=== PATIENT | female | born 1955 | race Caucasian/White ===

== ENCOUNTER 2022-09-28 14:05 | Outpatient (RCR) | payer OTHER, SELFPAY ==
[2022-07-22 12:17] LABS: D Dimer Quantitative* < 0.27 ug/ml (0.00-0.50)
[2022-07-24 05:09] LABS: Cardiolipin Antibody IgA < 10 APL (<=11); Cardiolipin Antibody IgG < 10 GPL (<=14); Cardiolipin Antibody IgM < 10 MPL (<=12)
[2022-07-26 16:55] LABS: FACV Specimen Whole Blood; Factor V Leiden (F5) Mutation Negative
[2022-07-27 17:58] LABS: Antithrombin, Enzymatic 118 % (76-128)
[2022-07-27 23:54] LABS: Protein C Functional 180 % (83-168); Protein S Functional 147 % (57-131)
[2022-08-01 22:52] LABS: BILL_DRV Billed; BILL_DRVC Billed; BILL_HEXPR Billed; Hexagonal Phospholipid Reflex Negative (Negative); Prothrombin Time 17.4 sec (12.0-15.5); dRVVT 1:1 Mix 47 sec (33-44); dRVVT Confirmation Negative ratio (Negative); dRVVT Screen 53 sec (33-44)
[2022-08-12 15:46] LABS: PT PCR Specimen Whole Blood
[2022-08-12 15:48] LABS: Prothrombin(F2)G20210A Variant Negative
[2022-09-22 03:57] LABS: B2Glycoprotein 1, IgG Antibody <10 SGU (<=20); B2Glycoprotein 1, IgM Antibody 23 SMU (<=20)
== END 2023-01-18 23:59 | disposition home or self-care (01) ==
LOC: CCIC 14:05
PROVIDERS: PCP Physician Assistant; Referring Provider Physician Assistant; Visit Provider Internal Medicine Hematology & Oncology
DX: I26.99 Other pulmonary embolism without acute cor pulmonale (principal); Z79.01 Long term (current) use of anticoagulants
CPT/HCPCS: 36415; 81240; 81241; 85300; 85303; 85306; 85379; 85598; 85610; 85613; 85730; 86146; 86147; 99212; 99213; 99214